=== PATIENT | male | born 1980 | race Caucasian/White ===

== ENCOUNTER 2017-06-23 19:01 | Inpatient (IN) ==
[2017-06-23] MEDS ORDERED: ASPIRIN PO STA (19:11)
[2017-06-23 19:26] LABS: MANUAL DIFF NEEDED? NO
[2017-06-23 19:29] LABS: BASO% 0.1 % (0.0-0.8); EOS# 0.02 X1000 (0.0-0.7); EOS% 0.1 % (0.0-10.0); HEMATOCRIT 44.1 % (42.0-52.0); HEMOGLOBIN 14.2 g/dL (14.0-18.0); IMM GRAN# 0.15 X1000 (0.0-0.04); IMM GRAN% 1.1 % (0.0-0.5); LYMPH# 1.63 X1000 (1.2-3.4); LYMPH% 12.1 % (20.5-51.1); MCH 27.8 PG (27-31); MCHC 32.2 g/dL (33-37); MCV 86.3 FL (81-99); MONO# 0.85 X1000 (0.11-0.59); MONO% 6.3 % (1.7-9.3); MPV 12.2 FL (7.4-10.4); NEUT% 80.3 % (42.2-75.2); PLT 282 X1000 (130-400); RBC 5.11 XMIL (4.7-6.1)
[2017-06-23 19:43] LABS: INR 0.98; PROTIME 10.3 Seconds (9.2-11.7); PTT 28.9 Seconds (22.0-36.0)
--- NOTE | 2017-06-23 19:48 | Diag Imaging Result Doc PS360 ---
CHEST-2 VIEWS - 06/23/2017 INDICATION: CP TECHNIQUE: COMPARISON: 04/16/2017 FINDINGS: There are worsening extensive bilateral coarse interstitial infiltrates that are relatively central. Heart size is normal. No pneumothorax or large effusion. IMPRESSION: Worsening indeterminate atypical interstitial infiltrates bilaterally. Please see the differential diagnosis given on the chest CT of 03/30/2017. Electronically signed by Rd Mccray 06/23/2017 7:46 PM
[2017-06-23 19:49] LABS: AGAP 12; ALKALINE PHOSPHATASE 67 U/L (32-122); BUN 15 mg/dL (8-22); CALCIUM 8.8 mg/dL (8.8-10.2); CHLORIDE 99 mmol/L (98-107); COSMO 269; GOT 26 U/L (10-34); GPT 29 U/L (10-44); POTASSIUM 4.1 mmol/L (3.5-5.1); SODIUM 134 mmol/L (136-145); TCO2 23 mmol/L (25-35); TOTAL PROTEIN 8.2 g/dL (6.3-8.3)
[2017-06-23 19:54] LABS: CK PROFILE 410 U/L (24-204)
[2017-06-23] MEDS ORDERED: SOLU-MEDROL IV ONE (20:04)
[2017-06-23 20:07] LABS: CK-MB 12.49 ng/mL (0.0-5.0)
[2017-06-23] MEDS ORDERED: TYLENOL PO PRN (20:34)
[2017-06-23] MEDS ORDERED: ZOFRAN IV PRN (20:34)
[2017-06-23] MEDS ORDERED: NS 1,000 ML IV ONE (20:34)
[2017-06-23] MEDS ORDERED: DUONEB (A & A) INH PRN (20:34)
[2017-06-23] MEDS: IMURAN PO SCH (21:25)
[2017-06-23] MEDS: CARDIZEM PO SCH (21:25)
[2017-06-23 21:48] LABS: ALLEN TEST YES; BE 0.7 mmoll (-3.0-3.0); BLOOD TYPE ARTERIAL; DRAW SITE R RADIAL; METHB 1.3 % (0.0-1.5); MODALITY CANNULA; O2(CT) 18.3 mL/dL (15.0-23.0); PCO2(98.6) 35 mmHg (35-45); PO2(98.6) 71 mmHg (60-100); SAMPLE BLOOD; SAO2 97.7 % (95.0-100.0); THB 13.9 g/dL (11.5-17.4); pH(98.6) 7.45 (7.35-7.45)
[2017-06-23] MEDS: LOVENOX SUBQ SCH (22:04)
[2017-06-23] MEDS: MAXIPIME 1 GM/NS 1 GM/50 ML IVPB IV SCH (22:04)
--- NOTE | 2017-06-23 22:16 | HISTORY AND PHYSICAL ---
CHIEF COMPLAINT: Shortness of breath. HISTORY OF PRESENT ILLNESS: A 37-year-old white male with history of polymyositis with involvement of the lung. Patient is followed by Dr. Rosa and Dr. Buchanan. He is on very high dose steroids about say 80 mg of prednisone a day and azathioprine. He came in for worsening shortness of breath the last 24 hours. He has been doing well. His last admission was about 3 months ago but he did undergo bronchoscopy in March with a lung biopsy per Dr. Rosa. He has been having some intermittent breathing issues since that time but the last 3 days he has being getting progressively short of breath. He noticed this morning when he got out of the shower he had significant dyspnea and he felt like he needed to be evaluated. Again he does carry a diagnosis of polymyositis, he had a history of E. coli pneumonia and a candidal infection of his pleural space. Cytology showed inflammation but no cancer, that was from 04/16. He had PFTs which showed moderate severe obstructive airway disease and possible severe restrictive disease. Patient does report cough, no lebron fevers or chills but he has been on high-dose steroids and azathioprine. Cough he says is clear. He did have an DAGMAR positivity, diffuse bilateral pulmonary infiltrates and it was felt that he had a diagnosis of pneumonitis related to his polymyositis. Patient today was fairly hypoxic he has been off oxygen, he got off oxygen I think about a month after leaving the hospital last time. He was tachycardic in the 130s and had saturations of 85% on room air. We do not have a blood gas from today. In any case, patient admitted for acute respiratory failure associated with interstitial pneumonitis which was felt to be again most likely related to his current interstitial infiltrates which has worsened since previously. His last CT scan was at the beginning of March. PAST MEDICAL HISTORY: Polymyositis and interstitial lung disease. PAST SURGICAL HISTORY: He has had bilateral knee TKAs. FAMILY HISTORY: Reviewed. Mother has diabetes but no other major issues. SOCIAL HISTORY: He has a smoking history but nothing over the last 3 months. No alcohol. ALLERGIES: Sulfa, Septra, specifically morphine and latex. REVIEW OF SYSTEMS: Denies any weight loss. He has pleuritic chest pain associated with coughing. No nausea, vomiting, diarrhea. No peripheral edema. All systems reviewed otherwise negative. PHYSICAL EXAMINATION: VITAL SIGNS: Blood pressure is currently 134/86, heart rate 114, respiratory 14, temperature 98.8 degrees, 94% on 3 L. GENERAL: A well-developed male in no acute distress. HEENT: Head exam was normocephalic, atraumatic. He is very pleasant, has good outlook. CARDIOVASCULAR: He was tachycardic. PULMONARY: Bilateral breath sounds with rales at the bases about custodial on both sides. GI: Was soft, nontender, nondistended. Bowel sounds are positive. EXTREMITIES: No clubbing or cyanosis. LYMPHATICS: No peripheral edema. NEUROLOGICAL: Nonfocal. MUSCULOSKELETAL: Was 5/5 in all 4 extremities. LABORATORY DATA: White count is 13, hemoglobin and hematocrit 14, 44, platelets 282,000. Chemistries, sodium 134, CK of 410. Troponin T of 0.037. Chest x-ray shows worsening interstitial infiltrates. ASSESSMENT: This is a 37-year-old male with history of polymyositis, interstitial lung disease, felt to be associated with that presenting with exacerbation and acute respiratory failure with concern over possible worsening interstitial lung disease with superimposed pneumonia. 1. Acute respiratory failure. We will continue breathing treatments within limits of his tachycardia, I am going to continue IV steroids although he has already been on very high dose steroids. 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 Rosa has been consulted and I am going to empirically put him on cefepime in case there is a superimposed infection. Obtain sputum culture if possible. I am going to go ahead and repeat his CT scan just to get a sense that something if there is more clinical deterioration and better evaluate for infiltrates interstitial versus otherwise and we will follow clinically. Continue DVT prophylaxis, GI prophylaxis. We will observe in the CICU just because of his relative hypoxia and his progression in his hypoxia although at this point he does not look to be in any acute respiratory distress. Will also obtain ABG just to get a better idea of his PF ratio. 2. Relative tachycardia is chronic and likely related to other issues. He did have some right ventricular dysfunction based on his echocardiogram done previously but he does not have any other symptoms that make me concerned about heart failure so we will follow clinically. Continue his Cardizem. His ejection fraction previously was 70% but his right ventricular function had been low but I think that has overall improved. 3. Polymyositis. Unclear at this point if that is exacerbated again. He is currently on his steroids and azathioprine. DISPOSITION: Pending his clinical course. cc: Felipa Buchanan MD
[2017-06-23] MEDS: DUONEB (A & A) INH SCH (23:31)
[2017-06-24] MEDS: SOLU-MEDROL IV SCH ×4 (02:35→20:28)
[2017-06-24] MEDS: DUONEB (A & A) INH SCH ×6 (03:00→23:00)
[2017-06-24 05:38] LABS: HEMATOCRIT 42.2 % (42.0-52.0); HEMOGLOBIN 13.3 g/dL (14.0-18.0); MCH 28.1 PG (27-31); MCHC 31.5 g/dL (33-37); MPV 12.4 FL (7.4-10.4); RBC 4.74 XMIL (4.7-6.1)
[2017-06-24 06:01] LABS: AGAP 15; BUN 18 mg/dL (8-22); CALCIUM 8.3 mg/dL (8.8-10.2); CHLORIDE 101 mmol/L (98-107); COSMO 274; POTASSIUM 4.4 mmol/L (3.5-5.1); SODIUM 135 mmol/L (136-145); TCO2 19 mmol/L (25-35)
[2017-06-24] MEDS: PRILOSEC PO SCH (06:26)
--- NOTE | 2017-06-24 07:36 | Diag Imaging Result Doc PS360 ---
CT THORAX W/CONTRAST - 06/24/2017 INDICATION: pneumonia TECHNIQUE: A CT dose reduction protocol was used. COMPARISON: 03/30/2017 FINDINGS: There is worsening mild diffuse mediastinal lymphadenopathy. There is severe worsening diffuse bilateral coarse interstitial infiltrates. Airways are clear. No pneumothorax or pleural effusion. IMPRESSION: Worsening severe pneumonitis. Again, this is not pneumococcal pneumonia. This is a progressive inflammatory process such as nonspecific interstitial pneumonitis, drug reaction, sarcoidosis, or other systemic inflammatory disease. Electronically signed by Rd Mccray 06/24/2017 7:33 AM
[2017-06-24] MEDS: CARDIZEM PO SCH ×2 (08:02→20:28)
[2017-06-24] MEDS: IMURAN PO SCH ×3 (08:02→16:36)
[2017-06-24] MEDS: MAXIPIME 1 GM/NS 1 GM/50 ML IVPB IV SCH ×3 (08:02→20:29)
--- NOTE | 2017-06-24 16:29 | PROGRESS NOTE ---
DATE: 06/24/2017 SUBJECTIVE: The patient is resting comfortably in bed. He does complain of shortness of breath with minimal exertion. OBJECTIVE: Vital Signs: Temperature 97.9 degrees, blood pressure 119/65, heart rate 74, respirations 23, O2 saturations 98% on 3 L nasal cannula. General: This is a young male, lying in bed, in no acute distress. Head: Normocephalic, atraumatic. Heart: S1, S2 normal. Regular rate and rhythm. Lungs: Equal air entry bilaterally. No crackles. No rhonchi. No wheezing. Abdomen: Positive bowel sounds. Soft, nontender, nondistended. Extremities: No edema. No cyanosis. No calf tenderness. Neurologic: The patient is alert oriented x3. LABORATORY: White blood cell count 11, hemoglobin 13, hematocrit 42, platelets 240,000. Sodium 135, potassium 4.4, chloride 101, CO2 19, BUN 18, creatinine 0.7, glucose 143, calcium 8.3. ASSESSMENT AND PLAN: 1. Acute respiratory distress secondary to pneumonitis. The patient is currently on antibiotics as well as steroid therapy. Pulmonary has been consulted for further assistance. 2. Polymyositis. Continue on steroid and azathioprine therapy. 3. Gastrointestinal prophylaxis. Continue on Prilosec. 4. Tachycardia. Continue on Cardizem. 5. Deep vein thrombosis prophylaxis. Continue on Lovenox. cc: Yumiko Beltran MD MTD
--- NOTE | 2017-06-24 17:19 | CONSULTATION ---
DATE OF CONSULTATION: 06/24/2017 REQUESTING PHYSICIAN: Dr. Toney. REASON FOR CONSULTATION: Respiratory failure. HISTORY OF PRESENT ILLNESS: Mr. Murray is a 37-year-old white male who was admitted to this hospital in October. The patient presented with muscle aches and pneumonia and had evidence of rhabdomyolysis with a CK of 12,000. The patient had a prolonged hospital course complicated by a gram-negative pneumonia and a candidal left lower lobe abscess. The patient underwent muscle biopsy during that hospitalization after being on steroids for several weeks which was nondiagnostic. The patient completed his antibiotics as an outpatient and was weaned off of steroids. The patient's symptoms returned and progressed and a CK 04/09/2017 was elevated at 2600. He underwent a bronchoscopy with transbronchial biopsies on 04/16 which revealed reactive pneumocytes with thickened alveolar septa, acute and chronic inflammation in 2 separate lobes. The patient was evaluated by Dr. Buchanan and initiated on Imuran approximately 6 weeks ago. He is also on prednisone 40 mg per day (two 20 mg tablets). 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 He has a cough. He denies fevers or chills or purulent sputum production. CT scan of the thorax reveals increased pulmonary infiltrates. CK is slightly elevated at 410 but a C-reactive protein remains elevated at 19.3. His aldolase obtained in April is also available in computer and is markedly elevated at. 26.6 units per L. PAST MEDICAL HISTORY: 1. Prolonged hospitalization in October with pneumonia and respiratory failure as per above. 2. Polymyositis as per above. 3. Osteoarthritis. SOCIAL HISTORY: Prior tobacco use. No alcohol use. FAMILY HISTORY: Notable for diabetes. REVIEW OF SYSTEMS: As noted in the HPI. PHYSICAL EXAMINATION: General: Reveals a thin white male resting comfortably and in no distress. Vital signs: BP 119/65, heart rate 94, respiration rate 23, oxygen saturation 98% on 3 L per nasal cannula. HEENT: Pupils are equal and reactive. Oropharynx is clear. Neck: Supple. Chest: Reveals scattered crackles. Cardiac Exam: Regular rate. Normal S1, normal S2. Abdomen: Soft without hepatosplenomegaly. Extremities: Without edema. LABORATORIES: CRP is elevated at 19.32 which is increased from previous value in March where it was measured at 5.31. IMPRESSION: 37-year-old with polymyositis who has been on Imuran and prednisone for approximately 6 weeks. The patient presents with increased pulmonary infiltrates, increase in CRP level, increase in CPK, and acute hypoxemic respiratory failure. He denies overt signs of infection although he is on immunosuppression. RECOMMENDATIONS: 1. Augment immunosuppression with increased steroid dosing. I will initiate Solu-Medrol 125 mg IV q.6 hours. 2. Follow for signs and symptoms of infection. 3. Consider increase Cardizem for initiation of a beta-bj if he remains tachycardiac. 4. If symptoms continued to progress, he will likely require referral to [facility]. He is young and may ultimately require a pulmonary transplant if his disease progresses. cc: Bennett Rosa MD MTDD
[2017-06-24] MEDS ORDERED: SOLU-MEDROL IV SCH (20:00)
[2017-06-24] MEDS: LOVENOX SUBQ SCH (20:29)
--- NOTE | 2017-06-25 02:34 | ED EKG INTERP ---
This chart was entered by Kenton Pena Scribe, acting as scribe for Wilman Mckeon MD. EKG Interpretation - EKG Time of EKG reading by physician:: 19:10 EKG Read and Signed by:: Wilman Mckeon EKG Interpretation (*Must complete 3 of following elements*): Abnormal ( Possible left atrial enlargement; Incomplete RBBB) Rate: 126 Rhythm: Sinus tachycardia Attestation - Physician/ TONE Attestation Patient care was provided by Advanced Practice Provider:: No The physician spent face to face time with patient:: Yes Advanced Practice Provider documentation review:: Supervising physician onsite and consulted in the evaluation and care of this patient. The physician did have a face to face encounter with the patient. This chart was documented by the indicated scribe, (Kenton Pena Scribe) and accurately reflects the services I performed and decisions made by me, Wilman Cartwright MD, as attested by the provider's signature.
--- NOTE | 2017-06-25 02:35 | PROVIDER DOCUMENTATION ---
This chart was entered by Kenton Pena Scribe, acting as scribe for Wilman Mckeon MD. HPI-Respiratory General - General Chief Complaint: Asthma Attack Stated Complaint: TROUBLE BREATHING, WHEEZING Time Seen by Provider: 06/23/17 20:04 Source: patient Allergies/Adverse Reactions: Patient Allergies Allergy/AdvReac Type Severity Reaction Status Date / Time morphine Allergy Severe "stopped Verified 06/23/17 19:37 my heart" latex Allergy RASH Verified 06/23/17 19:37 sulfamethoxazole Allergy HIVES Verified 06/23/17 19:37 [From ] trimethoprim [From ] Allergy HIVES Verified 06/23/17 19:37 Home Medications: Home Medication List Medication Instructions Recorded Confirmed Last Taken Type Diltiazem [Cardizem] 30 mg PO BID 04/13/17 06/23/17 06/23/17 09:00 History Azathioprine [Imuran] 50 mg PO TID 06/23/17 06/23/17 06/23/17 15:00 History Prednisone 40 mg PO BID 06/23/17 06/23/17 06/23/17 09:00 History - History of Present Illness-Resp Nature of Presenting Problem: Pt s a 37 yom who presents to ER with CC of worsening dyspnea and cough x3 days. Pt reports that he was admitted in October of this year for 60 days after being diagnosed with pna and then diagnosed with secondary pna. Pt states that after he was discharged, followed up with lashonda Beebe and was diagnosed with polymyositis. Pt states that he is currently taking 2 types of steroids. Pt reports that he has had a low grade fever, productive clear cough, and sore throat and rhinorrhea that have resolved. Pt reports recent sick contacts. Quality of Pain: reports: other (SOB) Severity in ED: reports: moderate, severe Onset/Duration: reports: 3 days ago Timing: reports: still present, getting worse Cough Quality/Degree: reports: mild, productive cough, sputum (clear) Episode Frequency: occasional episodes Associated Symptoms: reports: cough, fever/chills, heart racing, hurts to breathe, nasal drainage (resolved), shortness of breath, short of breath, sore throat (resolved). denies: chest pain/soreness, earache, sinus pain, sweaty, wheezing Similar Symptoms Previously?: Yes Recently seen or treated by another doctor?: Yes Review of Systems - Adult - REVIEW OF SYSTEMS - ADULT Constitutional: reports: fever. denies: chills, fatique, night sweats, weight gain, weight loss Eyes: reports: no symptoms reported Ears, Nose, Mouth & Throat: reports: sinus problem (rhinorrhea, resolved), throat pain (resolved). denies: epistaxis, nose pain, hoarseness, throat swelling Cardiovascular: reports: no symptoms reported Respiratory: reports: cough, excessive sputum production, shortness of breath. denies: chronic cough, dyspnea on exertion, hemoptysis, pleurisy, wheezing Gastrointestinal: reports: no symptoms reported Genitourinary: reports: no symptoms reported Musculoskeletal: reports: no symptoms reported Integumentary: reports: no symptoms reported Neurological: reports: no symptoms reported Psychiatric: reports: no symptoms reported Endocrine: reports: no symptoms reported Hematologic/Lymphatic: reports: no symptoms reported Allergic/Immunologic: reports: no symptoms reported All Other Systems: Reviewed and Negative Past History - Adult - PAST MEDICAL HISTORY-ADULT Review of Records: reports: Nursing Assessment Review, Medications Reviewed Respiratory: reports: asthma Endocrine/Immune: reports: other (polymyositis) - PRIOR SURGERIES/PROCEDURES Surgical/Procedure History: reports: orthopedic (extremity) (left knee surgery 15 years ago, left wrist injury and right ankle injury) - IMMUNIZATION STATUS Childhood Immunizations: See Nurse Assessment Flu Vaccine: See Nurse Assessment Physical Exam-General - PHYSICAL EXAM-ADULT Initial Vital Signs Reviewed: Yes - CONSTITUTIONAL General Appearance: appears well, alert, mild distress - EYES Eyes: PERRL/EOMI, pink conjunctivae - NECK Neck: non-tender, full range of motion, supple, normal inspection. negative: limited range of motion, lymphadenopathy - RESPIRATORY Respiratory: chest non-tender, lungs clear, normal breath sounds, no pleuratic chest pain, no respiratory distress, no accessory muscle use. negative: respiratory distress, decreased breath sounds, accessory muscle use, wheezing - CARDIOVASCULAR Cardiovascular: normal peripheral pulses, tachycardia. negative: regular rate, rhythm, bradycardia, irregularly irregular - GASTROINTESTINAL (ABDOMEN) Abdominal Exam: normal bowel sounds, non tender, soft, no organomegaly, no pulsatile mass. negative: guarding, rebound, tenderness - MUSCULOSKELETAL Extremity: normal range of motion, non-tender, normal gait, normal inspection, no pedal edema, no calf tenderness, normal capillary refill, pelvis stable. negative: deformity, erythema, inflammation, swelling, tenderness - SKIN Integumentary: normal color, normal turgor, warm/dry. negative: abrasion(s), ecchymosis, erythema, laceration(s), swelling, tenderness, warm - PSYCHIATRIC Psych/Mental Status: normal mood/affect, normal thought content, normal thought process, oriented x 3 Progress - PLAN OF CARE/RESULTS Progress/Plan/Lab Results: Orders Category Date Time Status Admit - [facility] Routine AdmDCTranf 06/23/17 20:34 Ordered Activity - Bed Rest with BRP ORDERED Care 06/23/17 20:34 Active Cardiac Monitoring DIRECTED Care 06/23/17 19:11 Completed Neurological Check Q4H Care 06/23/17 20:34 Active Oxygen Therapy- ED Nursing DIRECTED Care 06/23/17 19:11 Completed Saline Loc NOW Care 06/23/17 19:11 Completed Vital Signs Order Q 8-HR .ASSESS Care 06/23/17 20:34 Completed Z-Document. for Tele Applied ORDERED Care 06/23/17 20:34 Completed Regular Diet Diet 06/23/17 20:19 Active CHEST-2 VIEWS [RAD] Stat Exams 06/23/17 19:11 Completed BLOOD CULTURE [BLDCUL] Stat Lab 06/23/17 20:51 Results CBC WITH ELECTRONIC DIFF [HEME] Stat Lab 06/23/17 19:15 Completed CK PROFILE [SP CHEM] Stat Lab 06/23/17 19:15 Completed COMPREHENSIVE METABOLIC PANEL [CHEM] Stat Lab 06/23/17 19:15 Completed D-DIMER [CHEM] Stat Lab 06/23/17 19:15 Completed MAGNESIUM [CHEM] Stat Lab 06/23/17 19:15 Completed PRO B-NATRIURETIC PEPTIDE Stat Lab 06/23/17 19:15 Completed PROTIME WITH INR [COAG] Stat Lab 06/23/17 19:15 Completed PTT [COAG] Stat Lab 06/23/17 19:15 Completed TROPONIN T Stat Lab 06/23/17 19:15 Completed 0.9% Sodium Chloride Inj [Ns] 1,000 ml Med 06/23/17 20:34 Discontinued IV 100 mls/hr Acetaminophen [Tylenol] Med 06/23/17 20:34 Active 650 mg PO Q6H PRN PRN Albuterol 2.5MG/Ipratrop 0.5MG [Duoneb (A & A)] Med 06/23/17 20:34 Active 3 ml INH Q2H PRN PRN Albuterol 2.5MG/Ipratrop 0.5MG [Duoneb (A & A)] Med 06/23/17 23:30 Active 3 ml INH RTQ4H Aspirin Med 06/23/17 19:11 Discontinued 325 mg PO STAT STA Azathioprine [Imuran] Med 06/24/17 09:00 Active 50 mg PO TID Diltiazem [Cardizem] Med 06/23/17 21:00 Active 30 mg PO BID Methylprednisolone Sod Succ [Solu-Medrol] Med 06/23/17 20:04 Discontinued 125 mg IV NOW ONE Methylprednisolone Sod Succ [Solu-Medrol] Med 06/24/17 02:00 Discontinued 80 mg IV Q6H Ondansetron [Zofran] Med 06/23/17 20:34 Active 4 mg IV Q4H PRN PRN Aerosol Treatments Routine Oth 06/23/17 20:34 Completed Aerosol Treatments Stat Oth 06/23/17 20:34 Completed Oxygen Device Routine Oth 06/23/17 20:34 Completed Telemetry [OM.EQ] Routine Oth 06/23/17 20:34 Active Transfer/Admit Order [TRANSFER] Routine Transfer 06/23/17 20:18 Completed Result Diagrams: 06/24/17 05:21 06/24/17 05:21 - XRAY 1 XRAY: Bilateral XRAY Study: Chest Impression: See EMR Report (Worsening indeterminate atypical interstitial infiltrates bilaterally. Please see the differential diagnosis given on the chest CT of 03/30/2017 - Dr. Mccray (Radiologist)) XRAY Interpretation: See report - CONSULTS/PCP/HOSPITALIST Notification #1 *Consult/PCP/Hospitalist*: Dr. Toney (Hospitalist) Time Discussed: 20:12 Consult Disposition: Admit Departure - Departure Date of Disposition Decision: 06/23/17 Time of Disposition Decision: 22:00 DIAGNOSIS: Pneumonitis Disposition: ADMITTED INPATIENT 09 Certified Medical Emergency: Emergent Condition: Stable - Critical Care Note This patient required my direct & personal management of CC.: No Attestation - Physician/ TONE Attestation Patient care was provided by Advanced Practice Provider:: No The physician spent face to face time with patient:: Yes Advanced Practice Provider documentation review:: Supervising physician onsite and consulted in the evaluation and care of this patient. The physician did have a face to face encounter with the patient. This chart was documented by the indicated scribe, (Kenton Pena, Vish) and accurately reflects the services I performed and decisions made by me, Wilman Cartwright MD, as attested by the provider's signature.
[2017-06-25] MEDS: DUONEB (A & A) INH SCH ×6 (03:05→23:00)
[2017-06-25] MEDS: SOLU-MEDROL IV SCH ×4 (03:25→20:01)
[2017-06-25 05:24] LABS: HEMATOCRIT 41.2 % (42.0-52.0); IMM GRAN# 0.14 X1000 (0.0-0.04); IMM GRAN% 0.6 % (0.0-0.5); LYMPH# 1.96 X1000 (1.2-3.4); LYMPH% 8.3 % (20.5-51.1); MANUAL DIFF NEEDED? YES; MCH 27.7 PG (27-31); MCHC 31.6 g/dL (33-37); MCV 87.8 FL (81-99); MONO% 5.9 % (1.7-9.3); MPV 12.5 FL (7.4-10.4); NEUT% 85.2 % (42.2-75.2); PLT 271 X1000 (130-400); RBC 4.69 XMIL (4.7-6.1)
[2017-06-25 05:42] LABS: AGAP 12; ALBUMIN 3.2 g/dL (3.5-5.0); ALKALINE PHOSPHATASE 56 U/L (32-122); BUN 18 mg/dL (8-22); CALCIUM 8.5 mg/dL (8.8-10.2); CHLORIDE 101 mmol/L (98-107); COSMO 278; GOT 12 U/L (10-34); GPT 20 U/L (10-44); POTASSIUM 4.7 mmol/L (3.5-5.1); SODIUM 137 mmol/L (136-145); TCO2 24 mmol/L (25-35); TOTAL PROTEIN 6.8 g/dL (6.3-8.3)
[2017-06-25] MEDS: PRILOSEC PO SCH (06:13)
--- NOTE | 2017-06-25 06:19 | EKG Report ---
Test Performed on : 06/23/2017 7:10:08 PM Test Reason : Re-Ordered/Tachycardia Blood Pressure : / mmHG Vent. Rate : 126 BPM Atrial Rate : 126 BPM P-R Int : 132 ms QRS Dur : 106 ms QT Int : 334 ms P-R-T Axes : 053 078 027 degrees QTc Int : 483 ms Sinus tachycardia. Possible Left atrial enlargement Incomplete right bundle branch block Borderline ECG When compared with ECG of 22-NOV-2016 16:51, Nonspecific T wave abnormality no longer evident in Anterior leads Unconfirmed Result
[2017-06-25 06:45] LABS: LYMPHS 8 % (21-51); MONO 2 % (1-9)
--- NOTE | 2017-06-25 07:18 | Diag Imaging Result Doc PS360 ---
EXAM: CHEST-PORTABLE INDICATION: pneumonitis TECHNIQUE: One view COMPARISON: 06/23/2017 FINDINGS: The coarse bilateral infiltrates are unchanged. No new consolidation is appreciated. Cardiac silhouette is stable. IMPRESSION: Stable chest. Electronically signed by German Mendez 06/25/2017 7:16 AM
[2017-06-25] MEDS: CARDIZEM PO SCH ×2 (08:28→20:01)
[2017-06-25] MEDS: MAXIPIME 1 GM/NS 1 GM/50 ML IVPB IV SCH ×2 (08:52→20:48)
[2017-06-25] MEDS: IMURAN PO SCH ×3 (08:52→17:24)
--- NOTE | 2017-06-25 13:05 | PROGRESS NOTE ---
DATE: 06/25/2017 SUBJECTIVE: The patient is resting comfortable in the bed. Reports that his shortness of breath is getting better. He reports being able to walk around. Denies any fever or chills. OBJECTIVE: Vital Signs: Temperature 98.7 degrees, heart rate 84, respiratory rate 18, blood pressure 117/69, O2 saturation 99% on 3 L nasal cannula. General: This is a 37-year-old male, lying in bed, in no acute distress. HEENT: Head is normocephalic, atraumatic. Anicteric sclerae and pale conjunctivae. Mucous membranes moist. Neck: Supple. No JVD noted. No carotid bruits. No lymphadenopathy. No thyromegaly. Cardiovascular: S1, S2 heard. No murmurs, gallops, or rubs. Regular rate and rhythm. Respiratory: Clear bilaterally to auscultation. Few crackles in both bases but patient is not using any accessory muscles or having work of breathing. Abdomen: Soft. Nontender to palpation. Bowel sounds present. No organomegaly. Extremities: No clubbing, cyanosis, or edema. Peripheral pulses present in both legs. Neurological: Patient is alert and oriented x3. Able to move 4 extremities. Cranial nerves 2 through 12 grossly normal. LABORATORY DATA: White cell count 23.68, hemoglobin 13.,0 hematocrit 41.2, platelets 271,000. BMP is unremarkable. ASSESSMENT AND PLAN: 1. Acute respiratory distress secondary to pneumonitis. Currently this patient is on IV antibiotics, in this case cefepime and also as per pulmonary he has been started on high doses of steroid, in this case, Solu-Medrol 125 mg IV q.6 hours. Apparently this patient is responding to this medication. We will continue with the same management. 2. Polymyositis. The patient has been on steroids and also Imuran so we are going to continue with the same management. We may need to consult Dr. Buchanan down the road to help us in the management of this patient. 3. Gastrointestinal prophylaxis. Will continue with Prilosec. 4. Tachycardia. Will continue with Cardizem CD. 5. Deep vein thrombosis prophylaxis. Will continue with Lovenox. 6. Physical deconditioning. Physical therapy has been consulted. We will see what they have to say. cc: Roberto Jon MD
[2017-06-25] MEDS: LOVENOX SUBQ SCH (20:48)
[2017-06-26] MEDS: DUONEB (A & A) INH SCH ×6 (03:00→23:00)
[2017-06-26] MEDS: SOLU-MEDROL IV SCH ×3 (03:09→13:49)
[2017-06-26 05:12] LABS: HEMATOCRIT 42.6 % (42.0-52.0); HEMOGLOBIN 13.4 g/dL (14.0-18.0); IMM GRAN% 0.5 % (0.0-0.5); LYMPH# 1.67 X1000 (1.2-3.4); LYMPH% 7.5 % (20.5-51.1); MANUAL DIFF NEEDED? NO; MCH 27.9 PG (27-31); MCHC 31.5 g/dL (33-37); MCV 88.6 FL (81-99); MONO# 1.62 X1000 (0.11-0.59); MONO% 7.3 % (1.7-9.3); MPV 12.6 FL (7.4-10.4); NEUT% 84.7 % (42.2-75.2); PLT 281 X1000 (130-400); RBC 4.81 XMIL (4.7-6.1)
[2017-06-26] MEDS: PRILOSEC PO SCH (06:11)
[2017-06-26] MEDS: IMURAN PO SCH ×3 (09:23→21:53)
[2017-06-26] MEDS: MAXIPIME 1 GM/NS 1 GM/50 ML IVPB IV SCH (09:23)
[2017-06-26] MEDS: CARDIZEM PO SCH ×2 (09:24→21:53)
--- NOTE | 2017-06-26 09:33 | PROGRESS NOTE ---
DATE: 06/26/2017 SUBJECTIVE: Patient is resting comfortably in the bed. He reports that he is able to walk around and going to the bathroom. Not having muscle weakness when he tries to wake up. Denies any fever or chills. He reports that the shortness of breath that he had when he was admitted is getting definitely much better. OBJECTIVE: Vital Signs: Temperature 97.8 degrees, heart rate 91, respiratory rate 18, blood pressure 123/60, O2 saturation 96% on room air. General examination: This is a 37-year-old male, lying in bed, in no acute distress. HEENT: Head is normocephalic, atraumatic. Neck: Supple. No JVD noted. Cardiovascular Exam: S1, S2 heard. No murmurs, gallops, or rubs. Regular rate and rhythm. Respiratory: Clear bilaterally to auscultation. No work of breathing or using accessory muscles. Abdomen: Soft. Nontender to palpation. Bowel sounds present. No organomegaly. Extremities: No clubbing, cyanosis, or edema. Peripheral pulses present in both legs. Neurological: Patient is alert and oriented x3. Moves 4 extremities. LABORATORY DATA: White cell count 22.15, hemoglobin 13.4, hematocrit 42.6, platelets 281,000. No BMP from today. ASSESSMENT AND PLAN: 1. Acute respiratory distress secondary to pneumonitis. Patient has been evaluated by Dr. Rosa and he was started on Solu-Medrol 125 mg q.6 hours and also cefepime to cover any possible bacterial infection. Patient is clinically responding to this medication. That condition is most likely secondary also to polymyositis. In any case, we have also consulted Dr. Buchanan from rheumatology. Help appreciated. We are going to talk to Dr. Rosa and him to find out how long this patient will be on this high dose of Solu-Medrol. 2. Polymyositis. The patient is on prednisone 40 and Imuran. We are going to continue with the same management. Dr. Buchanan is on board. We will follow recommendations. 3. Tachycardia. Patient is currently receiving Cardizem 30 mg p.o. b.i.d. which apparently is controlling the heart rate. We will continue with the same management. 4. Deep vein thrombosis prophylaxis. The patient is on Lovenox. 5. Physical deconditioning. Physical therapy has been consulted. 6. Leukocytosis: Secondary to steroid use. Will continue checking CBC daily. cc: Roberto Jon MD [facility]ERTammi
[2017-06-26] MEDS ORDERED: NS 250 ML ONE (10:32)
[2017-06-26 10:54] LABS: INR 0.97; PROTIME 10.2 Seconds (9.2-11.7)
[2017-06-26] MEDS: LOVENOX SUBQ SCH (21:53)
[2017-06-26] MEDS: PREDNISONE PO SCH (21:53)
[2017-06-26] MEDS: MAXIPIME 1 GM in NS 50 ML IV SCH (21:55)
[2017-06-27] MEDS: DUONEB (A & A) INH SCH ×6 (03:00→23:19)
[2017-06-27 05:00] LABS: MANUAL DIFF NEEDED? NO
[2017-06-27 05:10] LABS: BASO% 0.1 % (0.0-0.8); HEMATOCRIT 42.2 % (42.0-52.0); HEMOGLOBIN 13.2 g/dL (14.0-18.0); IMM GRAN% 0.5 % (0.0-0.5); LYMPH% 8.2 % (20.5-51.1); MCH 27.8 PG (27-31); MCHC 31.3 g/dL (33-37); MCV 88.8 FL (81-99); MONO# 1.73 X1000 (0.11-0.59); MONO% 8.9 % (1.7-9.3); MPV 12.8 FL (7.4-10.4); NEUT% 82.3 % (42.2-75.2); PLT 261 X1000 (130-400); RBC 4.75 XMIL (4.7-6.1)
[2017-06-27 05:21] LABS: AGAP 8; BUN 21 mg/dL (8-22); CALCIUM 7.8 mg/dL (8.8-10.2); CHLORIDE 102 mmol/L (98-107); COSMO 280; POTASSIUM 4.1 mmol/L (3.5-5.1); SODIUM 138 mmol/L (136-145); TCO2 28 mmol/L (25-35)
[2017-06-27] MEDS: PRILOSEC PO SCH ×2 (05:34→06:01)
[2017-06-27] MEDS: MAXIPIME 1 GM in NS 50 ML IV SCH ×2 (08:56→20:41)
[2017-06-27] MEDS: CARDIZEM PO SCH ×2 (08:56→20:41)
[2017-06-27] MEDS: IMURAN PO SCH ×2 (08:56→20:41)
[2017-06-27] MEDS: PREDNISONE PO SCH ×2 (08:56→20:41)
--- NOTE | 2017-06-27 09:57 | PROGRESS NOTE ---
DATE: 06/27/2017 SUBJECTIVE: Patient reports breathing better. He is able to walk around with oxygen. Denies fever or chills. Denies cough. OBJECTIVE: Vital Signs: Temperature 97.8 degrees, heart rate 88, respiratory rate 18, blood pressure 117/64. O2 saturation 97% 2 L nasal cannula. General: This is a 37-year-old, male, lying in bed in no acute distress. HEENT: Head is normocephalic and atraumatic. Anicteric sclerae and pale conjunctivae. Neck supple. No JVD noted. No carotid bruits. No lymphadenopathy. Cardiovascular: S1, S2 heard. No murmurs, gallops, or rubs. Regular rate and rhythm. Respiratory: Clear bilaterally to auscultation. No work of breathing or using accessory muscles. Abdomen is soft, nontender to palpation. Bowel sounds present. No organomegaly. Extremities: No clubbing, cyanosis, or edema. Peripheral pulses present in both legs. Neurological: Patient alert and oriented x3. Moves 4 extremities. LABORATORY DATA: White cell count 19.44, hemoglobin 13.2, hematocrit 42.2, platelets 261,000 with BMP unremarkable. ASSESSMENT AND PLAN: 1. Acute respiratory failure secondary to pneumonitis. We have changed Solu-Medrol 125 mg IV q.6 hours for prednisone 40 mg p.o. b.i.d. which has actually doubled the doses that he was taking before and, also, we have increased the Imuran from 50 mg p.o. 3 times per day to 100 mg p.o. b.i.d. Clinically, the patient is responding to the medication. and Dr. Rosa are following this patient. Help is appreciated. We will continue with the same management. 2. Polymyositis. Patient is on medication as above. We will continue with the same management. 3. Tachycardia. Patient is on Cardizem 30 mg p.o. b.i.d. because heart rate usually tends to go up every time he tried to walk. He is responding to this low dose of Cardizem. We will continue with the same management. 4. Deep vein thrombosis prophylaxis with Lovenox. 5. Physical deconditioning. Physical therapy has been consulted and working with this patient. 6. Leukocytosis secondary to steroid use. It is getting definitely much better. We will continue checking CBC daily. cc: Roberto Jon MD
[2017-06-27] MEDS: LOVENOX SUBQ SCH (20:41)
[2017-06-28] MEDS: DUONEB (A & A) INH SCH ×6 (02:55→23:09)
[2017-06-28 05:21] LABS: MANUAL DIFF NEEDED? NO
[2017-06-28 05:27] LABS: EOS# 0.01 X1000 (0.0-0.7); EOS% 0.1 % (0.0-10.0); HEMATOCRIT 41.8 % (42.0-52.0); HEMOGLOBIN 13.2 g/dL (14.0-18.0); IMM GRAN# 0.11 X1000 (0.0-0.04); IMM GRAN% 0.7 % (0.0-0.5); LYMPH# 1.55 X1000 (1.2-3.4); LYMPH% 9.9 % (20.5-51.1); MCH 28.1 PG (27-31); MCHC 31.6 g/dL (33-37); MCV 88.9 FL (81-99); MONO# 1.26 X1000 (0.11-0.59); MONO% 8.1 % (1.7-9.3); MPV 12.1 FL (7.4-10.4); NEUT% 81.2 % (42.2-75.2); PLT 235 X1000 (130-400)
[2017-06-28 05:53] LABS: AGAP 11; BUN 19 mg/dL (8-22); CALCIUM 8.2 mg/dL (8.8-10.2); CHLORIDE 102 mmol/L (98-107); COSMO 285; POTASSIUM 4.3 mmol/L (3.5-5.1); SODIUM 141 mmol/L (136-145); TCO2 28 mmol/L (25-35)
[2017-06-28] MEDS: PRILOSEC PO SCH (06:09)
[2017-06-28] MEDS: CARDIZEM PO SCH ×2 (08:45→22:47)
[2017-06-28] MEDS: PREDNISONE PO SCH ×2 (08:45→22:47)
[2017-06-28] MEDS: MAXIPIME 1 GM in NS 50 ML IV SCH ×2 (08:45→23:06)
[2017-06-28] MEDS: IMURAN PO SCH ×2 (08:46→22:48)
--- NOTE | 2017-06-28 09:35 | PROGRESS NOTE ---
DATE: 06/28/2017 SUBJECTIVE: Patient reports breathing better. As per nursing staff, he tried to walk around apparently too fast and O2 saturation dropped to the low 80s and 70s. OBJECTIVE: Vital Signs: Temperature 97.3 degrees, heart rate 82, respiratory rate 23, blood pressure 128/81, O2 saturation 94% on 1 L nasal cannula. General Examination: This is a 37-year- old, male, lying in bed, in no acute distress. HEENT: Head is normocephalic and atraumatic. Neck: Supple. No JVD noted. No carotid bruits. Cardiovascular Examination: S1 and S2 heard. No murmurs, gallops, or rubs. Regular rate and rhythm. Respiratory Examination: Clear bilaterally to auscultation. No work of breathing or using accessory muscles. Abdomen: Soft, nontender to palpation. Bowel sounds present. No organomegaly. Extremities: No clubbing, cyanosis, or edema. Peripheral pulses present in both legs. Neurological Examination: Patient alert and oriented x3. Moves 4 extremities. Laboratory Data: White cell count is 15.62, hemoglobin 13.2, hematocrit 41.8, and platelets 235,000. BMP is completely unremarkable. ASSESSMENT AND PLAN: 1. Acute respiratory failure secondary to pneumonitis. The patient has been on prednisone 40 mg by mouth twice a day for the last 2 days and also Imuran has been increased to 100 by mouth twice a day. Apparently, patient is responding to the medication. He was trying to walk around yesterday and apparently he was walking too fast so oxygen saturation while he was walking dropped to low 80s and 70s. At rest, he was doing fine. Upon my examination, he is on 1 L, maintaining oxygen saturation above the 90s. The plan for this patient is to try to walk again slowly and we will see how this patient does. Dr. Rosa from pulmonary following this patient. Help appreciated. 2. Polymyositis. Patient on medications as above. Dr. Buchanan is also following this patient from rheumatology. 3. Sinus tachycardia. Patient is on Cardizem 30 mg by mouth twice a day. We will continue with the same management. The heart rate is basically between 80s and 100 most of the time. It has not reached greater than 140s to 150s during his hospitalization. We will continue with the same medication. 4. Deep vein thrombosis prophylaxis. Patient is on Lovenox. 5. Physical deconditioning. Physical therapy has been consulted. 6. Leukocytosis. This is definitely secondary to steroid use. There are no signs of a bacterial infection. It is definitely getting much better. At this point, we will continue checking CBC daily. 7. Disposition. If the patient is able to walk around slowly and oxygen saturation is okay, not having those drops discovered yesterday, he may be discharged tomorrow. We will also talk with Dr. Rosa, if he is okay to let him go tomorrow if he tolerates light walking here in the hospital. cc: Roberto Jon MD MTDD
[2017-06-28] MEDS: LOVENOX SUBQ SCH (22:48)
[2017-06-29] MEDS: DUONEB (A & A) INH SCH ×3 (03:29→11:14)
[2017-06-29 05:15] LABS: MANUAL DIFF NEEDED? NO
[2017-06-29 05:21] LABS: BASO% 0.1 % (0.0-0.8); EOS# 0.03 X1000 (0.0-0.7); EOS% 0.2 % (0.0-10.0); HEMATOCRIT 42.4 % (42.0-52.0); HEMOGLOBIN 13.3 g/dL (14.0-18.0); IMM GRAN# 0.12 X1000 (0.0-0.04); IMM GRAN% 0.9 % (0.0-0.5); LYMPH# 1.48 X1000 (1.2-3.4); LYMPH% 10.6 % (20.5-51.1); MCH 27.8 PG (27-31); MCHC 31.4 g/dL (33-37); MCV 88.5 FL (81-99); MONO# 1.07 X1000 (0.11-0.59); MONO% 7.7 % (1.7-9.3); MPV 12.2 FL (7.4-10.4); NEUT% 80.5 % (42.2-75.2); PLT 225 X1000 (130-400); RBC 4.79 XMIL (4.7-6.1)
[2017-06-29 05:43] LABS: AGAP 10; BUN 19 mg/dL (8-22); CALCIUM 8.2 mg/dL (8.8-10.2); CHLORIDE 102 mmol/L (98-107); COSMO 278; POTASSIUM 4.4 mmol/L (3.5-5.1); SODIUM 138 mmol/L (136-145); TCO2 26 mmol/L (25-35)
[2017-06-29] MEDS: PRILOSEC PO SCH (06:22)
[2017-06-29] MEDS: PREDNISONE PO SCH (10:02)
[2017-06-29] MEDS: CARDIZEM PO SCH (10:02)
[2017-06-29] MEDS: IMURAN PO SCH (10:03)
[2017-06-29] MEDS: MAXIPIME 1 GM in NS 50 ML IV SCH (10:04)
[2017-06-29 12:53] VITALS: BP 120/78
--- NOTE | 2017-06-29 17:48 | ECHO REPORT ---
ORDER DATE: 06/29/2017 INTERPRETING PHYSICIAN: Shane Rosas MD INDICATION: Ventricular tachycardia and respiratory failure. M-MODE MEASUREMENTS: Right ventricle: 2.8 cm. Left ventricle end diastole: 4.6 cm. Left ventricle end systole: 2.8 cm. Posterior wall: 1 cm. Interventricular septum: 1 cm. Left atrium: 3.4 cm. Aortic root: 2.9 cm. SUMMARY OF 2-DIMENSIONAL IMAGIN. Left ventricular function is normal with ejection fraction estimated at 70%. There is no wall motion abnormality. 2. The right ventricle appears to be at the upper limits of normal. 3. The atria appear to be normal. 3. The mitral valve looks normal. Color flow mapping indicates a mild degree of regurgitation. 4. Pulse wave Doppler of mitral inflow is normal. 5. Tissue Doppler of septal and lateral mitral annulus averages 16 cm. 6. There is no diastolic dysfunction. 7. Pulmonary venous flow is normal. 8. The aortic valve looks normal. Color flow mapping is unremarkable. 9. The tricuspid valve looks normal with a mild degree of regurgitation. 10.The inferior vena cava is not dilated. 11.The pulmonary pressure is estimated at 42 mmHg. 12.The pulmonic valve looks normal. Color flow mapping is unremarkable. 13.There is no pericardial effusion and no sign of thrombus. SUMMARY: In summary, this echocardiographic study is quite unremarkable. cc: MD Mingo Chavez CRNP
--- NOTE | 2017-06-30 12:58 | DISCHARGE SUMMARY ---
ADMISSION DATE: 06/23/2017 DISCHARGE DATE: 06/29/2017 CONSULTATIONS: Dr. Bennett Rosa with Pulmonology. PERTINENT PROCEDURES: Chest CT: Showed worsening severe pneumonitis. Again, this is not pneumococcal pneumonia there is progressive inflammatory process such as nonspecific interstitial pneumonitis, drug reaction, sarcoidosis, or other systemic inflammatory disease. DISCHARGE DIAGNOSES: 1. Acute respiratory failure secondary to pneumonitis, improved. The patient is being discharged on Imuran and prednisone. 2. Polymyositis followed by Dr. Buchanan from rheumatology. Continue home medications. 3. Sinus tachycardia, improved. Continue Cardizem. 4. Leukocytosis secondary to steroid use. No signs of bacterial infection. HOSPITAL COURSE: Mr. Murray is a 37-year-old male with a history of polymyositis with involvement of the lung. The patient is followed by Dr. Rosa and Dr. Buchanan, on very high doses of steroids about 80 mg of prednisone and azathioprine. He came to the ED for worsening shortness of breath for 24 hours. He had been doing well. His last admission was 3 months ago, where he underwent a bronchoscopy in March with a lung biopsy with Dr. Rosa. He had been having some intermittent breathing issues since that time, but the last 3 days he was getting progressively more short of breath. On the morning of his admission, he got out of the shower, felt significant dyspnea and felt he needed to be evaluated. He does carry a history of E. coli pneumonia and candidal infection of his pleural space. He reported no cough, no lebron fevers or chills. He was severely hypoxic and he has been off his oxygen. He was tachycardic in the 130s. Saturation was 85% on room air. He was admitted for acute respiratory failure associated with interstitial pneumonitis. His CT scan showed worsening severe pneumonitis. Again, this is not pneumococcal pneumonia. He has progressive inflammatory process such as nonspecific interstitial pneumonitis, drug reactions, sarcoidosis, or other systemic inflammatory disease. He was evaluated by Dr. Rosa. Started him on IV Solu-Medrol, Augmentin, immunosuppression, continued on his Cardizem CD. He was responding to his all medications. His shortness of breath was getting better. He was able to walk around. Continue with no fevers or chills. Continue with a high white count secondary to his high-dose steroids. Dr. Meier is discharging the patient home today. VITAL SIGNS: Temperature is 98.4 degrees, heart rate 94, respirations 20, blood pressure 120/78, O2 is 97% on room air. DISCHARGE DIET: Regular. DISCHARGE MEDICATIONS: As per Dr. Meier: 1. Imuran 100 mg p.o. b.i.d. 2. Cardizem 30 mg p.o. b.i.d. 3. Prilosec 40 mg p.o. daily. 4. Prednisone 40 mg p.o. b.i.d. FOLLOWUP: Mr. Murray is being discharged home. He will follow up with Dr. Buchanan as well as Dr. Rosa. Continue home medications. Prescribed. He can return to the ED for any worsening of symptoms. DISCHARGE TIME: 30 minutes. This is ADRIÁN Kent, doing a discharge summary for Dr. Meier. Dictated by ADRIÁN Kent for Roberto Jon MD cc: Roberto Jon MD
== END 2017-06-29 13:45 | disposition home or self-care (01) ==
LOC: ED 19:01 → SUATTDRO 20:39 → 3S 20:39 → 4N 06-28 19:41
PROVIDERS: ATTEND Internal Medicine